=== PATIENT | female | born 1995 | race Caucasian/White ===

== ENCOUNTER 2018-05-29 21:37 | Outpatient (REF) | payer OTHER, SELFPAY ==
[2018-05-29 22:35] LABS: Bilirubin Negative (Negative); Blood Negative (Negative); Clarity Clear; Glucose Negative (Negative); Ketones Negative (Negative); Leukocyte Esterase Small (Negative); Nitrite Negative (Negative); Specific Gravity 1.015 (1.005-1.025); Urobilinogen 0.2 EU/dL (Up TO 0.2)
[2018-05-29 22:53] LABS: Bacteria Many HPF (Negative); Casts Negative LPF (Negative); Crystals Negative HPF (Negative); Epithelial Cells Many HPF (Negative); Mucus Negative (Negative); RBC Negative (0-2)
[2018-05-29 22:54] LABS: C & S Indicated? No/Sq. Contamination
[2018-05-31 14:22] LABS: Chlamydia Result Negative; GC Result Negative; Specimen Description vaginal
== END 2018-05-29 21:57 ==
LOC: NCHCN 21:37
PROVIDERS: Family Medicine
DX: R30.0 Dysuria (principal); Z11.3 Encounter for screening for infections with a predominantly sexual mode of transmission
CPT/HCPCS: 87491; 87591; 81003; 81015

== ENCOUNTER 2018-07-04 15:33 | Outpatient (REF) | payer OTHER, SELFPAY ==
[2018-07-04 21:13] LABS: Bilirubin Negative (Negative); Blood Negative (Negative); Clarity Clear; Glucose Negative (Negative); Ketones Negative (Negative); Leukocyte Esterase Trace (Negative); Nitrite Negative (Negative); Specific Gravity 1.015 (1.005-1.025); Urobilinogen 0.2 EU/dL (Up TO 0.2); pH 6.5 (5-8)
[2018-07-04 21:50] LABS: Bacteria Few HPF (Negative); Epithelial Cells Rare HPF (Negative); RBC 0-2 (0-2)
[2018-07-04 21:51] LABS: C & S Indicated? Yes; Casts Negative LPF (Negative); Mucus Negative (Negative)
== END 2018-07-04 15:53 ==
LOC: NCHCN 15:33
PROVIDERS: Visit Provider Nurse Practitioner Family
DX: N76.0 Acute vaginitis (principal)
CPT/HCPCS: 87077; 81003; 81015; 87086; 87186; 87480; 87510; 87660

== ENCOUNTER 2018-07-05 15:45 | Outpatient (REF) | payer OTHER, SELFPAY ==
[2018-07-05 21:10] LABS: C-Reactive Protein 0.08 mg/dL (0.0-0.3)
[2018-07-05 21:21] LABS: Abs Immature Grans 0.01 k/cumm (0.0-0.09); Absolute Basophil Count 0.02 k/cumm (0.0-0.2); Absolute Eosinophil Count 0.08 k/cumm (0.0-0.7); Absolute Neutrophil Count 4.42 k/cumm (1.2-6.7); Basophils % 0.3; Eosinophils % 1.2; HCT 40.8 % (36.0-46.0); HGB 13.2 g/dL (12.0-15.5); Immature Grans % 0.2; Lymphocytes % 25.6; Mean Corp. HGB Concentration 32.4 g/dL (32.0-36.0); Mean Corpuscular Hemoglobin 29.9 pg (27.0-33.0); Mean Corpuscular Volume 92.3 fL (80-95); Mean Platelet Volume 9.7 fL (8.0-11.0); Neutrophils % 66.7; Platelet Count 276 x1000/uL (130-400); RBC 4.42 m/cumm (4.00-5.20); RBC Distribution Width 12.7 % (11.7-14.6); White Blood Cell Count 6.63 k/cumm (4.4-10.8)
[2018-07-05 23:18] LABS: ESR 8 MM/HR (0-20)
[2018-07-08 10:02] LABS: Cyclic Citrullinated Peptide <2.5 U/mL (<5.0)
[2018-07-08 11:31] LABS: Rheumatoid Factor <8 IU/mL (<12.5)
[2018-07-08 11:33] LABS: ANA Interpretation Negative (NEGAT)
== END 2018-07-05 16:05 ==
LOC: NCHCN 15:45
PROVIDERS: PCP Nurse Practitioner Family; Visit Provider Nurse Practitioner Family
DX: M25.50 Pain in unspecified joint (principal)
CPT/HCPCS: 85652; 86200; 85025; 86038; 86140; 86431

== ENCOUNTER 2018-10-30 15:14 | Outpatient (REF) | payer OTHER, SELFPAY ==
--- NOTE | 2018-10-30 13:30 | PAPFT_PTH ---
PATIENT: TULIO DYER LOC: [facility] U#:[id number] AGE/SX: 23/F ROOM: RE10/30/[address]: Renetta Royal : 1995 BED: DIS: 10/30/2018 SPEC #: [id number] RECD: 10/31/18 13:03 STATUS: SUSAN REIrina #: [id number] ZACARIAS: 10/30/18 13:[address]: Renetta Royal DEPT: [facility] Cytology RECD BY: Nancy Palma ENTERED: 10/31/18 13:03 SP TYPE: PAPFT OTHR DR: Tabatha Perez Tissues: 1 - CX/ENDOCX FOR PAP SMEARS Procedures: PAP THIN PREP/[facility] Screening Comments: [id number]
[2018-11-01 14:17] LABS: Chlamydia Result Negative; GC Result Negative; Specimen Description URINE
== END 2018-10-30 15:34 ==
LOC: NCHCN 15:14
PROVIDERS: PCP Nurse Practitioner Family; Visit Provider Family Medicine
DX: Z00.00 Encounter for general adult medical examination without abnormal findings (principal); N89.8 Other specified noninflammatory disorders of vagina; Z11.3 Encounter for screening for infections with a predominantly sexual mode of transmission; Z12.4 Encounter for screening for malignant neoplasm of cervix
CPT/HCPCS: 87491; 87591; 88142; 87480; 87510; 87660